=== PATIENT | female | born 1980 | race African-American/Black ===

== ENCOUNTER 2024-09-02 17:04 | Emergency (ER) | payer MEDICAID ==
[~2024-09-02] VITALS: Ht 172.7 cm; Wt 75.0 kg
[2024-09-02 17:17] VITALS: TEMP 37.2; O2SAT 99
[2024-09-02 18:04] LABS: HEMATOCRIT. 39.4 % (36.0-48.0)
[2024-09-02 18:06] LABS: HEMOGLOBIN. 13.2 g/dL (12.0-16.0); MEAN PLATELET VOLUME 7.7 fl (7.4-10.4); PLATELET 191 x1000/uL (130-400); RED BLOOD CELL COUNT 4.57 mill/uL (4.2-5.4); RED CELL DISTRIBUTION WIDTH 13.0 % (11.6-14.6)
[2024-09-02 18:16] LABS: CREATININE 0.9 mg/dL (0.6-1.0); UREA NITROGEN BLOOD 13 mg/dL (9-23)
[2024-09-02 18:18] LABS: ASPARTATE AMINOTRANSFERASE 17 IU/L (<34); BILIRUBIN DIRECT 0.2 mg/dL (<=3.0); BILIRUBIN TOTAL 0.7 mg/dL (0.1-1.0); PROTEIN TOTAL 7.2 g/dL (6.0-8.3)
[2024-09-02 18:31] LABS: HCG SCREEN NEGATIVE
[2024-09-02 18:36] LABS: LYMPHOCYTES % MANUAL 1.0 % (20.0-60.0); MONOCYTES % MANUAL 7.0 % (2.0-8.0); NEUTROPHILS % MANUAL 92.0 % (45.0-75.0); PLATELET ESTIMATE NORMAL
[2024-09-02] MEDS: HALOPERIDOL LACTATE 5MG/ML VIAL IM ONE (19:00)
[2024-09-02 19:01] LABS: CLARITY URINE CLEAR (CLEAR); COLOR URINE YELLOW (YELLOW); GLUCOSE URINE NEGATIVE (NEGATIVE); KETONES URINE 1+ (NEGATIVE); LEUKOCYTE ESTERASE URINE NEGATIVE (NEGATIVE); NITRITE URINE NEGATIVE (NEGATIVE); OCCULT BLOOD URINE NEGATIVE (NEGATIVE); PH URINE 5.5 (4.5-8.0); PROTEIN URINE NEGATIVE (NEGATIVE); SPECIFIC GRAVITY URINE 1.018 (1.005-1.030); UROBILINOGEN URINE 1.0 E.U./dL (0.2-1.0)
[2024-09-02 19:26] VITALS: BP 115/36; PULSE 65; RESP 20; O2SAT 99
[2024-09-02 19:28] LABS: *AMPHETAMINES SCREEN URINE NEGATIVE (NEGATIVE)
[2024-09-02 19:29] LABS: *BARBITURATES SCREEN URINE NEGATIVE (NEGATIVE); *BENZODIAZEPINES SCREEN URINE NEGATIVE (NEGATIVE); *COCAINE SCREEN URINE NEGATIVE (NEGATIVE); CANNABINOID URINE SCREEN PRESUMPTIVE POSITIVE (NEGATIVE); ECSTASY MDMA SCREEN URINE NEGATIVE (NEGATIVE); METHADONE URINE SCREEN NEGATIVE (NEGATIVE); OPIATES URINE SCREEN NEGATIVE (NEGATIVE); PHENCYCLIDINE URINE SCREEN NEGATIVE (NEGATIVE)
[2024-09-02 20:12] LABS: ETHANOL BLOOD < 10 mg/dL (<10)
[2024-09-02 20:14] LABS: PHOSPHORUS 2.6 mg/dL (2.5-4.9)
[2024-09-02] MEDS: SODIUM CHLORIDE 0.9% 1,000 ML IV ONE (20:56)
[2024-09-02] MEDS: DIPHENHYDRAMINE 50MG/ML VIAL IV ONE (21:30)
[2024-09-02] MEDS: PANTOPRAZOLE SODIUM 40 MG/VIAL IV ONE (21:30)
[2024-09-02] MEDS: ONDANSETRON HCL 4MG/2ML INJ IV ONE (21:30)
[2024-09-02] MEDS: MORPHINE SULFATE 2 MG/ML INJ (NOT FOR IM USE) IV ONE (21:30)
== END 2024-09-02 21:56 | disposition home or self-care (01) ==
LOC: ER 17:04
DX: R11.2 Nausea with vomiting, unspecified (principal); G40.909 Epilepsy, unspecified, not intractable, without status epilepticus; Z88.6 Allergy status to analgesic agent
CPT/HCPCS: 80076; 80305; 80048; 81003; 81025; 80320; 84703; 83690; 83735; 84100; 85025; 36415; 96360; 96372; 99283; J1630; J7030; Z7610 ×2; A4606; G0480